=== PATIENT | female | born 1935 | race Caucasian/White ===

== ENCOUNTER 2023-08-31 17:58 | Emergency (ER) | payer MEDICARE, OTHER, SELFPAY ==
[2023-08-31 17:59] VITALS: BP 178/75; PULSE 87; RESP 16; TEMP 36.7; O2SAT 100; BMI 26.0
[2023-08-31] MEDS: 0.9% Normal Saline (1000mL) 1,000 ML 999 ML IV (18:49)
--- NOTE | 2023-08-31 18:49 | EX.ED.DYSGE1 ---
HPI <SHARON Alves - Last Filed: 08/31/23 20:41> History of Present Illness Chief Complaint: Complaint Narrative Narrative: Patient presenting today due to decreased urination that started today. She reports that she has tried multiple times to urinate but is unable to. She reports that over the past 6 days she has been sick with flulike symptoms, her daughter and grandchildren have been sick with similar symptoms and were here visiting her for [place]. She reports that 6 days ago she started having diarrhea, this lasted for 2 days. She reports that now she has a productive cough that is getting better. She reports that she drank a cup of coffee, cider, and pop today with a little bit of water in between. She denies any fevers, chills, chest pain, shortness of breath, abdominal pain, nausea, or vomiting. PFSH <SHARON Alves - Last Filed: 08/31/23 20:41> PFSH Allergy/AdvReac Type Severity Reaction Status Date / Time amoxicillin Allergy Intermediate Rash Verified 08/31/23 19:27 ciprofloxacin [From Cipro] Allergy Intermediate Rash Verified 08/31/23 18:02 clavulanic acid Allergy Intermediate Rash Verified 08/31/23 19:27 codeine AdvReac Intermediate Vomiting Verified 08/31/23 18:02 meperidine [From Demerol] AdvReac Intermediate Vomiting Verified 08/31/23 18:02 morphine AdvReac Intermediate Vomiting Verified 08/31/23 18:02 Social History Smoking Status: Never smoker ROS <SHARON Alves - Last Filed: 08/31/23 20:41> ROS ED Constitutional Constitutional ED: Denies chills or fever(s) Cardiovascular Cardiovascular: Denies chest pain Respiratory/Chest Respiratory/Chest: Reports cough; Denies dyspnea or dyspnea on exertion Gastrointestinal Gastrointestinal: Denies abdominal pain, nausea or vomiting Genitourinary Genitourinary ED: Denies dysuria, hematuria or urinary urgency Musculoskeletal Musculoskeletal: Denies arthralgias or myalgias Integumentary Reports other Details: Patient reports a slight rash to her chest due to 2 days of Augmentin that she recently took but discontinued. Neurologic Neurologic: Denies weakness EXAM <SHARON Alves - Last Filed: 08/31/23 20:41> Physical Exam Const Vital Signs: 08/31/23 17:59 08/31/23 20:38 Temperature 98.1 F Temperature Source Temporal Pulse Rate 87 77 Respiratory Rate 16 Blood Pressure 178/75 H Blood Pressure Mean 109 Pulse Ox 100 99 Oxygen Delivery Method Room Air Room Air Positive well nourished, well developed and no apparent distress General Appearance ED: well developed HEENT Reports normocephalic and head/scalp atraumatic Mouth ED: Yes moist mucous membranes normal Eyes PERRL and EOMs intact bilaterally Neck full ROM and supple Chest Wall inspection of chest normal Resp normal respiratory effort and clear to auscultation bilaterally Cardio regular rate and regular rhythm GI soft to palpation, non-tender, non-distended and no masses Back/Spine normal ROM and normal to inspection Extremity normal to inspection and full ROM Neuro oriented x3, CN's II-XII intact bilaterally, moves all extremities, no focal motor deficits and no sensory deficits noted Sensorium / Orientation: awake and alert Psych mental status grossly normal and thought process normal Skin no rashes or lesions noted and no wounds <Dr. Hiro Ryder, DO - Last Filed: 08/31/23 23:23> Physical Exam Const Vital Signs: 08/31/23 17:59 08/31/23 20:38 Temperature 98.1 F Temperature Source Temporal Pulse Rate 87 77 Respiratory Rate 16 Blood Pressure 178/75 H Blood Pressure Mean 109 Pulse Ox 100 99 Oxygen Delivery Method Room Air Room Air MDM <SHARON Alves - Last Filed: 08/31/23 20:41> [facility] Narrative Medical decision making narrative: Patient presenting due to decreased urinary output that started today. She has been sick with flulike symptoms that sound viral in nature over the past 6 days. Her , daughter, and grandchildren have been sick with similar symptoms. At the beginning of her illness she did have 2 days of diarrhea which has resolved. She reports a cough that is getting better. It does not sound like she has had much to drink today, I suspect that patient's decreased urinary output is due to dehydration. Labs will be obtained to rule out GOLDY, electrolyte abnormality, leukocytosis, and UTI. She is hypokalemic at 3.0, she was given potassium replacement here. She was given IV fluids and was able to urinate without difficulty. No UTI. I encouraged her to follow-up with her PCP. She will be discharged home in stable condition and is comfortable with plan. Lab Data Attestation: I reviewed the patient's lab results. Lab results narrative: H&H 11.7 and 34.4, potassium 3.0 Labs: Laboratory Results - last 24 hr 08/31/23 08/31/23 18:23 19:05 WBC 7.4 RBC 3.50 L Hgb 11.7 L Hct 34.4 L MCV 98.3 MCH 33.4 H MCHC 34.0 RDW Std Deviation 44.8 H RDW Coeff of Beau 12.4 Plt Count 282 MPV 8.8 Immature Gran % (Auto) 0.400 Neut % (Auto) 59.3 Lymph % (Auto) 26.7 Izard % (Auto) 8.8 Eos % (Auto) 4.5 Baso % (Auto) 0.3 Absolute Neuts (auto) 4.4 Absolute Lymphs (auto) 1.97 Nucleated RBC % 0 Sodium 140 Potassium 3.0 L Chloride 108 H Carbon Dioxide 30.0 Anion Gap 2 L BUN 13 Creatinine 0.99 Estim Creat Clear Calc 35.22 Est GFR (MDRD) Af Amer 68 Est GFR (MDRD) Non-Af 56 L BUN/Creatinine Ratio 13.1 Glucose 117 H Calcium 9.1 Urine Color Yellow Urine Clarity Clear Urine pH 6.0 Ur Specific [place] 1.010 Urine Protein Negative Urine Glucose (UA) Normal Urine Ketones Negative Urine Occult Blood Negative Urine Nitrite Negative Urine Bilirubin Negative Urine Urobilinogen Normal Ur Leukocyte Esterase Negative Urine RBC 0 SEEN Urine WBC 0 SEEN Ur Squamous Epith Cells 0-5 SEEN Urine Bacteria 0 SEEN Urine Mucus 0 SEEN <Dr. Hiro Ryder, DO - Last Filed: 08/31/23 23:23> [facility] MDM Narrative Medical decision making narrative: Patient presenting due to decreased urinary output that started today. She has been sick with flulike symptoms that sound viral in nature over the past 6 days. Her , daughter, and grandchildren have been sick with similar symptoms. At the beginning of her illness she did have 2 days of diarrhea which has resolved. She reports a cough that is getting better. It does not sound like she has had much to drink today, I suspect that patient's decreased urinary output is due to dehydration. Labs will be obtained to rule out GOLDY, electrolyte abnormality, leukocytosis, and UTI. She is hypokalemic at 3.0, she was given potassium replacement here. She was given IV fluids and was able to urinate without difficulty. No UTI. I encouraged her to follow-up with her PCP. She will be discharged home in stable condition and is comfortable with plan. Attending note: Patient seen and evaluated with dinkey engine firer. I perform my own [id number] evaluation. I agree with the plan of work-up. Please consider decreased urine output.'s been sick had vomiting is resolved now diarrhea. No recent antibiotics. Sick contact with family members. She is tolerating oral fluids. Examination after workup and fluids given nontoxic feeling much better. Clinically nontoxic no focal deficits. Labs slight hypokalemia consistent with her diarrhea. Creatinine 0.99 white count of 4 hemoglobin 9.7. Urine was negative for fraction. She is ambulated with no difficulties. She will continue oral fluids for hydration at home. Outpatient follow-up with return precautions. All questions were answered. Lab Data Labs: Laboratory Results - last 24 hr 08/31/23 08/31/23 18:23 19:05 WBC 7.4 RBC 3.50 L Hgb 11.7 L Hct 34.4 L MCV 98.3 MCH 33.4 H MCHC 34.0 RDW Std Deviation 44.8 H RDW Coeff of Beau 12.4 Plt Count 282 MPV 8.8 Immature Gran % (Auto) 0.400 Neut % (Auto) 59.3 Lymph % (Auto) 26.7 Izard % (Auto) 8.8 Eos % (Auto) 4.5 Baso % (Auto) 0.3 Absolute Neuts (auto) 4.4 Absolute Lymphs (auto) 1.97 Nucleated RBC % 0 Sodium 140 Potassium 3.0 L Chloride 108 H Carbon Dioxide 30.0 Anion Gap 2 L BUN 13 Creatinine 0.99 Estim Creat Clear Calc 35.22 Est GFR (MDRD) Af Amer 68 Est GFR (MDRD) Non-Af 56 L BUN/Creatinine Ratio 13.1 Glucose 117 H Calcium 9.1 Urine Color Yellow Urine Clarity Clear Urine pH 6.0 Ur Specific [place] 1.010 Urine Protein Negative Urine Glucose (UA) Normal Urine Ketones Negative Urine Occult Blood Negative Urine Nitrite Negative Urine Bilirubin Negative Urine Urobilinogen Normal Ur Leukocyte Esterase Negative Urine RBC 0 SEEN Urine WBC 0 SEEN Ur Squamous Epith Cells 0-5 SEEN Urine Bacteria 0 SEEN Urine Mucus 0 SEEN Discharge Plan Triage Chief Complaint: Complaint ED Midlevel Provider: Charlene Gudino ED Provider: Hiro Ryder Dx/Rx/DC Orders Clinical Impression: Viral illness, Dehydration, Acute hypokalemia Instructions: ED Dehydration (Adult), ED Viral Syndrome (Adult) Primary Care Provider: Care Physician,No Primary Referrals: NOT,DEFINED [Non-Staff] - Activity Restrictions/Additional Instructions: Follow-up with your PCP in 3 to 5 days if no improvement of your symptoms. Return for any worsening of your symptoms. Stay well-hydrated. Disposition Disposition: Home, Self Care Discharge Date/Time: 08/31/23 20:38
--- OUTSIDE RECORDS SUMMARY | 2023-08-31 18:54 | XMS RPT_ITS | CCD ---
Author Name Unknown Address [address] [place] [address] Organization [facility] Care Team Providers Care Handle Rounder Operator Name Role Phone Lewis, Rufus Attending Unavailable Mary Dyer Referring Unavailable Mary Dyer Primary Care Unavailable Luz Maria Pemberton Attending Unavailable UNKNOWN, PROVIDER Referring Unavailable Gunning, Rufus Primary Care Unavailable PROVIDER, UNKNOWN Attending Unavailable UNKNOWN, PROVIDER Referring Unavailable Gunning, Rufus Primary Care Unavailable Gunning, Rufus Attending Unavailable UNKNOWN, PROVIDER Referring Unavailable Gunning, Rufus Primary Care Unavailable Gunning, Rufus Primary Care Provider Gunbetty, Rufus Primary Care Provider Lewis MYERS, Rufus Primary Care Provider Lewis MYERS, Rufus Primary Care Provider Lewis MYERS, Rufus Primary Care Provider AJIT REAVES MD [facility] Attending Rebeca macy REAVES MD., DR. AJIT Garcia Primary Care Unavail able Lewis MYERS, Rufus Primary Care Provider Lewis MYERS, Rufus Primary Care Provider Ajit Reaves Primary Care Provider Unavailabl e Lewis MYERS, Rufus Primary Care Provider NILAY, LUZ MARIA Attending Unavailable GUNNING, RUFUS Primary Care Unavailable NILAY, LUZ MARIA Attending Unavailable GUNNING, RUFUS Primary Care Unavailable NILAY, LUZ MARIA Attending Unavailable GUNNING, RUFUS Primary Care Unavailable ARCADIO MARI Attending Unavailable GUNNING, RUFUS Primary Care Unavailable ARCADIO MARI Attending Unavailable AJIT REAVES Primary Care Unavailable NILAY, LUZ MARIA Attending Unavailable GUNNING, RUFUS Primary Care Unavailable LUZ MARIA PEMBERTON Attending Unavailable RUFUS EVANS Primary Care Unavailable AJIT REAVES Attending Unavailable AJIT RAEVES Referring Unavailable RUFUS EVANS Primary Care Unavailable JELLY, AJIT Attending Unavailable HAFSARIDARSHAN, AJIT Referring Unavailable HAFSARIDARSHAN, AJIT Primary Care Unavailable HAFSARIDARSHAN, AJIT Attending Unavailable HAFSARIDARSHAN, AJIT Referring Unavailable HAFSARIDARSHAN, AJIT Primary Care Unavailable Allergies Allergy Classification Reported Allergen(s) Allergy Type Date of Onset Reaction(s) Facility (20 sources) amLODIPine Drug Allergy 6 [facility] Work Phone: (20 sources) Ciprofloxacin Drug Allergy 6 Rash [facility] Work Phone: (20 sources) Codeine Drug Allergy 6 [facility] Work Phone: (9 sources) hydroCHLOROthiazide Drug Allergy 6 [facility] Work Phone: (20 sources) Meperidine Drug Allergy 6 [facility] Work Phone: (20 sources) Morphine Drug Allergy 6 [facility] Work Phone: (20 sources) nebivolol Drug Allergy 6 Shortness Of Breath [facility] Work Phone: (19 sources) Docusate Drug Allergy 9 Shortness of breath [facility] (19 sources) hydroCHLOROthiazide Drug Allergy 6 [facility] (19 sources) oxybutynin Drug Allergy 8 [facility] Medications Current Medications Medication Drug Class(es) Dates Sig (Normalized) Sig (Original) Ascorbic Acid (19 sources) Vitamin C take 1 tablet by della th once daily Ascorbic Acid (PATY-C PO) Take 1 tablet by mouth daily. 0 Active Completed/Discontinued Medications Medication Drug Class(es) Dates Sig (Normalized) Sig (Original) perflutren lipid microspheres (DEFINITY) injection 1.65 mg (1 source) Start: 01-15-2020 End: 01-15-2020 perflutren lipid microspheres (DEFINITY) injection 1.65 mg Problems Active Problems Problem Classification Problem Date Documented Date Episodic/Chronic Allergic reactions (6 sources) Allergy status to narcotic agent status; Translations: [Allergy status to other antibiotic agents status] Onset: 10-26-2018 Episodic Contraceptive and procreative management (2 sources) Tubal ligation status; Translations: [Tubal ligation status] Onset: 10-26-2018 Episodic Disorders of lipid metabolism (20 sources) Hyperlipidemia, unspecified; Translations: [Hyperlipidemia] Onset: 06-02-2016 06-02-2016 Chronic Esophageal disorders (2 sources) Gastro-esophageal reflux disease without esophagitis; Translations: [Gastro-esophageal reflux disease without esophagitis] Onset: 10-26-2018 Chronic Essential hypertension (20 sources) Essential (primary) hypertension; Translations: [Essential hypertension] Onset: 04-15-2016 Resolved: 07-02-2020 04-15-2016 Chronic Malaise and fatigue (1 source) Fatigue; Translations: [Other fatigue] Episodic Nonmalignant breast conditions (5 sources) Pain of breast; Translations: [Mastodynia] Onset: 05-12-2023 05-12-2023 Episodic Nutritional deficiencies (1 source) Vitamin D deficiency; Translations: [Vitamin D deficiency, unspecified] Chronic Other aftercare (2 sources) [facility] (current) use of aspirin; 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] Onset: 10-26-2018 Episodic Other connective tissue disease (2 sources) Personal history of other diseases of the musculoskeletal system and connective tissue; Translations: [Personal history of diseases of the ms sys and conn tiss] Onset: 10-26-2018 Episodic Other nervous system disorders (2 sources) Carpal tunnel syndrome, left upper limb; Translations: [Carpal tunnel syndrome, left upper limb] Onset: 11-21-2018 Chronic Residual codes; unclassified (2 sources) Obstructive sleep apnea (adult) (pediatric); Translations: [Obstructive sleep apnea (adult) (pediatric)] Onset: 10-26-2018 Chronic Residual codes; unclassified (20 sources) Obstructive sleep apnea syndrome; Translations: [Obstructive sleep apnea (adult) (pediatric)] Onset: 06-10-2021 06-10-2021 Chronic Residual codes; unclassified (2 sources) Other specified postprocedural states; Translations: [Other specified postprocedural states] Onset: 10-26-2018 Urinary tract infections (1 source) Urinary tract infectious disease; Translations: [Urinary tract infection, site not specified] Episodic Past or Other Problems Problem Classification Problem Date Documented Da te Episodic/Chronic Other lower respiratory disease (20 sources) Dyspnea on exertion; Translations: [Dyspnea, unspecified] Onset: 01-02-2020 01-02-2020 Episodic Other lower respiratory disease (2 sources) Dyspnea; Translations: [Other forms of dyspnea] Onset: 12-28-2022 12-28-2022 Episodic Other lower respiratory disease (1 source) Other forms of dyspnea; Translations: [Other forms of dyspnea] Onset: 06-15-2022 Episodic Other screening for suspected conditions (not mental disorders or infectious disease) (7 sources) Encounter for screening mammogram for malignant neoplasm of breast; Translations: [Patient encounter status] Onset: 03-23-2018 05-10-2023 Episodic Results Test Name Value Interpretation Reference Range Facil ity Vital Signs Date Time Vital Sign Value Performing Clinician Faci lity 08-09-2023 10:17-0500 Body height 162.6 cm Arcadio Mari MD Work Phone: [facility] 08-09-2023 10:17-0500 Body mass index (BMI) [Ratio] 25.47 kg/m2 Arcadio Mari MD Work Phone: [facility] 08-09-2023 10:17-0500 Body weight 67.31 kg Arcadio Mari MD Work Phone: [facility] 08-09-2023 10:17-0500 Diastolic blood pressure 80 mm[Hg] Arcadio Mari MD Work Phone: [facility] 08-09-2023 10:17-0500 Heart rate 74 /min Arcadio Mari MD Work Phone: [facility] 08-09-2023 10:17-0500 Respiratory rate 16 /min Arcadio Mari MD Work Phone: [facility] 08-09-2023 10:17-0500 SaO2% (BldA) [Mass fraction] 98 % Arcadio Mari MD Work Phone: [facility] 08-09-2023 10:17-0500 Systolic blood pressure 126 mm[Hg] Arcadio Mari MD Work Phone: [facility] 05-10-2023 11:23-0400 Body height 162.6 cm Ajit Reaves MD Work Phone: [facility] 05-10-2023 11:23-0400 Body mass index (BMI) [Ratio] 25.23 kg/m2 Ajit Reaves MD Work Phone: [facility] 05-10-2023 11:23-0400 Body weight 66.68 kg Ajit Reaves MD Work Phone: [facility] 02-01-2023 10:36-0400 Body height 162.6 cm Luz Maria Nilay PA-C Work Phone: [facility] 02-01-2023 10:36-0400 Body mass index (BMI) [Ratio] 25.23 kg/m2 Luz Maria Nilay PA-C Work Phone: [facility] 02-01-2023 10:36-0400 Body weight 66.68 kg Luz Maria Nilay PA-C Work Phone: [facility] 02-01-2023 10:36-0400 Diastolic blood pressure 62 mm[Hg] Luz Maria Nilay PA-C Work Phone: [facility] 02-01-2023 10:36-0400 Heart rate 66 /min Luz Maria Nilay PA-C Work Phone: [facility] 02-01-2023 10:36-0400 Respiratory rate 15 /min Luz Maria Nilay PA-C Work Phone: [facility] 02-01-2023 10:36-0400 Systolic blood pressure 134 mm[Hg] Luz Maria Nilay PA -C Work Phone: [facility] Encounters Encounter Date Encounter Type Care Provider Facility Start: 08-09-2023 End: 08-09-2023 ambulatory ARCADIO MARI [facility] Start: 08-09-2023 End: 08-09-2023 Office outpatient visit 25 minutes Arcadio Mari MD Work Phone: [facility] Procedures Date Procedure Procedure Detail Performing Clinician Start: 08-09-2023 Ecg routine ecg w/le ast 12 lds w/i&r Arcadio Mari MD Work Phone: Start: 05-12-2023 Us breast uni real t justin with image limited Ajit Jelly Start: 05-12-2023 Diagnostic mammograp hy computer-aided detcj bi Ajit Reaves Start: 01-29-2023 Basic metabolic pane l calcium total Luz Maria Nilay PA-C Work Phone: Start: 01-04-2023 Basic metabolic pane l calcium total Luz Maria Nilay PA-C Work Phone: Start: 12-28-2022 Basic metabolic pane l calcium total Luz Maria Nilay PA-C Work Phone: Start: 05-07-2022 Screening digital br east tomosynthesis bi Ajit Reaves MD Work Phone: Start: 03-31-2022 Us retroperitoneal r eal time w/image limited Carleen Sarabia MD Work Phone: Start: 04-19-2021 Radiologic exam ches t 2 views Arminda Scherer MD Work Phone: Start: 02-15-2020 Comprehensive metabo lic panel Luz Maria Nilay Work Phone: Start: 01-15-2020 ECHOCARDIOGRAM EXERC ISE STRESS TEST Luz Maria Nilay Work Phone: Start: 01-04-2020 Radiologic exam ches t 2 views Luz Maria Nilay Work Phone: Start: 01-04-2020 Natriuretic peptide [facility] Nilay Work Phone: Start: 09-01-2019 Comprehensive metabo lic panel Darshan Floyd MD Work Phone: Start: 09-01-2019 Lipid panel Darshan Floyd MD Work Phone: Start: 09-01-2019 Lipid 1996 panel - S jens or Plasma [facility] Drawstation Plan of Treatment Date Care Activity Detail Author Start: 10-17-2027 DTaP/Tdap/Td vaccine (2 - Td or Tdap) DTaP/Tdap/Td vaccine (2 - Td or Tdap) [facility] Start: 10-17-2027 DTaP/Tdap/Td Vaccines (2 - Td or Tdap) DTaP/Tdap/Td Vaccines (2 - Td or Tdap) [facility] Start: 09-01-2024 Lipid panel Lipid Panel [facility] Start: 08-09-2023 End: 08-09-2023 Patient encounter procedure [facility] Start: 05-10-2023 End: 05-10-2023 Patient encounter procedure 05/10/2023 11:15 AM EDT Appointment [facility] [address] [place] [address] [facility] Start: 04-30-2023 COVID-19 Vaccine ( season) COVID-19 Vaccine () [facility] Start: 04-30-2023 Influenza vaccination Influenza Vaccine (#1) [facility] Start: 03-22-2023 End: 05-23-2024 DBT Breast - bilateral screening Bilateral screening mammogram with tomosynthesis Imaging Routine Encounter for screening mammogram for malignant neoplasm of breast Expected: 03/22/2023, Expires: 05/23/2024 [facility] Work Phone: Immunizations Immunization Date Immunization Notes Care Provider Jina stiles 06-25-2022 influenza virus vacc ine, unspecified formulation Luz Maria Pemberton PA-C Work Phone: [facility] Payers Date Payer Category Payer Medicare [id number] 2022 Private Health Insurance [id number] 2014 Medicare MEDICARE MEDICAR E PART A AND B xxxxxxxxxxx 2014-Present [phone] [place] [address] xxxxxxxxxxx [id number] 2014 Private Health Insurance HUMANA HUMANA MEDICARE SUPP xxxxxxxxx 2014-Present [address] [address] [place] [address] xxxxxxxxx [id number] 2010 Private Health Insurance 2010 Private Health Insurance [id number] 2001 Medicare 2001 Medicare [id number] 1936 Unknown [id number] Unknown [id number] 1936 Unknown [id number] Unknown [id number] 1936 Unknown [id number] Social History Date Type Detail Facility Start: 06-02-2016 End: 01-02-2020 Tobacco smoking status WAIS Never smoker [employer] Phone: Start: 01-02-2020 End: 06-10-2021 Alcohol intake Current drinker of alcohol (finding) [facility] Phone: Start: 04-14-2016 Alcohol Comment ocasional glass of w ine [facility] Phone: Start: 1935 Sex Assigned At Not on file [facility] Work Phone: Start: 06-02-2016 End: 01-02-2020 Tobacco use and exposure Never used [facility] [place] Start: 12-28-2022 End: 08-09-2023 Alcohol intake Ex-drinker (finding) [facility] Start: 12-18-2022 End: 02-01-2023 Exposure to SARS-CoV-2 (event) Not sure [facility] Start: 02-01-2023 End: 08-09-2023 History of Social function [facility] Start: 02-01-2023 End: 08-09-2023 Tobacco use panel [facility] Clinical Notes 04-19-2021 to 08-09-2023 Arcadio Mari MD - 08/09/2023 10:15 AM ESTCare Coordination - Funmi Glover, [facility] - 05/10/2023 11:15 AM [facility] [place] Funmi Glover, [facility] - 05/10/2023 11:15 AM EDT Note Date & Type Note Facility 08-09-2023 History of Present illness Narrative [facility] [address] [place] [address] [facility] [address] Dept: [phone] Dept Visit type: Established : 1935 Chief Complaint: Chief Complaint Patient presents with 6 Month Follow-up Hypertension History of Present Illness: Luz Maria Burnham is a 87 y.o. female who is here in follow-up concerning her history of hypertensive heart disease and dyspnea. Overall she has been doing well. She will have some shortness of breath and fatigue after being active all day. She does not have symptoms of angina or heart failure. She did not tolerate a beta-antonia due to fatigue. She is doing better on her current antihypertensive regimen. Past Medical History: Past Medical History: Diagnosis Date Dyspnea on exertion 01/02/2020 GERD (gastroesophageal reflux disease) Hyperlipidemia Hypertension Obstructive sleep apnea (adult) (pediatric) Vertigo Past Surgical History Past Surgical History: Procedure Laterality Date ADENOIDECTOMY (HISTORICAL) DILATION AND CURETTAGE OF UTERUS ROTATOR CUFF REPAIR Bilateral SPINE SURGERY Shranoma nerve TONSILLECTOMY (HISTORICAL) TUBAL LIGATION Family History Family History Problem Relation Name Age of Onset Bladder Cancer Mother 40 Heart failure Father Heart disease Brother Hypertension Brother Colon cancer Paternal Grandfather 80 Social History Social History Tobacco Use Smoking status: Never Smokeless tobacco: Never Substance Use Topics Alcohol use: Not Currently Drug use: Yes Comment: occ glass of wine Allergies: Allergies Allergen Reactions Docusate Shortness of breath Nebivolol Hcl Shortness of breath Excessive sweating Excessive sweating Codeine Other reaction(s): Other: See Comments Intolerance unknown Vomiting, lightheadedness, sweating Meperidine Other reaction(s): Intolerance, Vomiting Intolerance unknown Vomiting, lightheaded, sweating Morphine Other reaction(s): Other: See Comments Intolerance unknown Vomiting, lightheaded, sweating Hydrochlorothiazide Fatigue Amlodipine Other reaction(s): Other: See Comments Fatigue fatique Ciprofloxacin Rash Oxybutynin Other reaction(s): Mental Status Change foggy Medications: Current Outpatient Medications: Ascorbic Acid (PATY-C PO), Take 1 tablet by mouth daily., Disp: , Rfl: CRANBERRY PO, Take 1 capsule by mouth daily., Disp: , Rfl: hydroCHLOROthiazide (HYDRODiuril) 25 MG tablet, take 1/2 tablet by mouth once daily, Disp: 15 tablet, Rfl: 4 losartan (Cozaar) 50 MG tablet, Take 1 tablet by mouth in the morning and 1 tablet in the evening., Disp: , Rfl: omeprazole (PriLOSEC) [address] capsule, Take 20 mg by mouth Daily as needed. Do not crush or chew., Disp: , Rfl: Review of Systems: Review of Systems Constitutional: Positive for fatigue. Negative for activity change, chills, diaphoresis and fever. HENT: Negative for nosebleeds and trouble swallowing. Eyes: Negative for discharge and visual disturbance. Respiratory: Positive for shortness of breath (with exc/stairs). Negative for apnea, cough, chest tightness and wheezing. Cardiovascular: Negative for chest pain, palpitations and leg swelling. Gastrointestinal: Negative for abdominal distention, abdominal pain, blood in stool, diarrhea, nausea and vomiting. Endocrine: Negative for cold intolerance and heat intolerance. Genitourinary: Negative for hematuria. Musculoskeletal: Negative for gait problem and myalgias. Skin: Negative for color change and rash. Neurological: Negative for dizziness, seizures, syncope, facial asymmetry, speech difficulty, weakness, light-headedness, numbness and headaches. Hematological: Does not bruise/bleed easily. Psychiatric/Behavioral: Negative for dysphoric mood. Physical Examination: Vitals: Vitals: 08/09/23 1017 BP: 126/80 BP Location: Left arm Patient Position: Sitting BP Cuff Size: Adult Pulse: 74 Resp: 16 SpO2: 98% Weight: 148 lb 6.4 oz (67.3 kg) Height: 5' 4 (1.626 m) Body mass index is 25.47 kg/m . Physical Exam Constitutional: Appearance: Normal appearance. HENT: Head: Normocephalic and atraumatic. Nose: Nose normal. Eyes: General: No scleral icterus. Extraocular Movements: Extraocular movements intact. Pupils: Pupils are equal, round, and reactive to light. Neck: Thyroid: No thyromegaly. Vascular: No carotid bruit or JVD. Cardiovascular: Rate and Rhythm: Normal rate and regular rhythm. Pulses: Normal pulses. Heart sounds: No murmur heard. No gallop. Pulmonary: Effort: Pulmonary effort is normal. Breath sounds: No wheezing, rhonchi or rales. Chest: Chest wall: No tenderness. Abdominal: General: Abdomen is flat. There is no distension. Palpations: Abdomen is soft. There is no hepatomegaly, splenomegaly or mass. Musculoskeletal: General: No swelling or tenderness. Normal range of motion. Cervical back: No tenderness. Skin: General: Skin is warm. Neurological: General: No focal deficit present. Mental Status: She is alert and oriented to person, place, and time. Cranial Nerves: Cranial nerves 2-12 are intact. No cranial nerve deficit. Psychiatric: Attention and Perception: Attention normal. Mood and Affect: Mood normal. Speech: Speech normal. Behavior: Behavior normal. Laboratory Tests: Lab Results Component Value Date WBC 7.5 01/04/2023 HGB 12.6 01/04/2023 HCT 36.6 01/04/2023 MCV 95.3 01/04/2023 PLT 209 01/04/2023 Lab Results Component Value Date GLUCOSE 95 01/29/2023 CALCIUM 9.0 01/29/2023 NA 137 01/29/2023 K 3.6 01/29/2023 CO2 30 01/29/2023 CL 103 01/29/2023 BUN 14 01/29/2023 CREATININE 0.70 01/29/2023 @LASTCMP@ Lab Results Component Value Date CHOL 246 (A) 09/01/2019 Lab Results Component Value Date TRIG 107 09/01/2019 Lab Results Component Value Date HDL 80 (H) 09/01/2019 No results found for: LDLCALC NT PRO BNP Date Value Ref Range Status 01/04/2020 91 0 - 450 pg/mL Final Assessment and Plan: 1. Primary hypertension 1. Hypertensive heart disease: She is currently doing well on her current medicines. Her blood pressure is well-controlled. I will continue this as is. 2. Fatigue: She had fatigue with beta-blockers and other antihypertensives. She is doing better on this regimen. We will continue this. documented in this encounter [facility] 05-10-2023 Miscellaneous Notes Patient came in for bilateral screening mammogram today, after asking if she had any issues the patient stated she had a lump with pain in left lateral breast for the last week. I asked if she had seen her doctor concerning this issue and she stated she had not. I then explained to the patient that we would need to call her doctors office and obtain an order for a diagnostic mammogram and ultrasound for her lump and pain. Patient was frustrated initially. I continued to explain the importance of a diagnostic mammogram vs a screening mammogram for her. After talking with the patient she understood we would reach out to her doctor and get her on the schedule as soon as possible. Patient was agreeable to this. documented in this encounter [facility] 05-10-2023 Note Formatting of this n ote might be different from the original. Patient came in for bilateral screening mammogram today, after asking if she had any issues the patient stated she had a lump with pain in left lateral breast for the last week. I asked if she had seen her doctor concerning this issue and she stated she had not. I then explained to the patient that we would need to call her doctors office and obtain an order for a diagnostic mammogram and ultrasound for her lump and pain. Patient was frustrated initially. I continued to explain the importance of a diagnostic mammogram vs a screening mammogram for her. After talking with the patient she understood we would reach out to her doctor and get her on the schedule as soon as possible. Patient was agreeable to this. [facility] 05-10-2023 Note Formatting of this n ote might be different from the original. Patient came in for bilateral screening mammogram today, after asking if she had any issues the patient stated she had a lump with pain in left lateral breast for the last week. I asked if she had seen her doctor concerning this issue and she stated she had not. I then explained to the patient that we would need to call her doctors office and obtain an order for a diagnostic mammogram and ultrasound for her lump and pain. Patient was frustrated initially. I continued to explain the importance of a diagnostic mammogram vs a screening mammogram for her. After talking with the patient she understood we would reach out to her doctor and get her on the schedule as soon as possible. Patient was agreeable to this. [facility] 04-05-2023 Telephone encounter Note COLBY: 02/01/23, Last BMP: 01/29/23 [facility] 04-05-2023 Miscellaneous Notes COLBY: 02/01/23, Last BMP: 01/29/23 documented in this encounter [facility] 02-01-2023 History of Present illness Narrative [facility] Note DATE of SERVICE:02/01/23 TIME of SERVICE: 10:58 AM Chief Complaint: Chief Complaint Patient presents with Follow-up History of PresentIllness: Luz Maria Burnham is a 87 y.o. female known to Dr. Mari with a history of hypertensive heart disease, and hyperlipidemia. Over the last couple of months medications have been changed for better blood pressure management as well as significant fatigue. Metoprolol was changed to bisoprolol which did not help alleviate the symptoms of fatigue. She stopped the bisoprolol on her own accord. She was placed on hydralazine and she states she did not feel well on this. She was last seen May 1 and at that time she was willing to try hydrochlorothiazide that had been previously listed as an intolerance that she could not remember. She comes in today for follow-up. She is happy to say she is feeling great. Her blood pressures have been better controlled, and her activity tolerance is significantly improved. Past Medical History: Past Medical History: Diagnosis Date Dyspnea on exertion 01/02/2020 GERD (gastroesophageal reflux disease) Hyperlipidemia Hypertension Obstructive sleep apnea (adult) (pediatric) Vertigo Past Surgical History Past Surgical History: Procedure Laterality Date ADENOIDECTOMY (HISTORICAL) DILATION AND CURETTAGE OF UTERUS ROTATOR CUFF REPAIR Bilateral SPINE SURGERY Shranoma nerve TONSILLECTOMY (HISTORICAL) TUBAL LIGATION Family History Family History Problem Relation Name Age of Onset Heart failure Father Heart disease Brother Hypertension Brother Social History Social History Tobacco Use Smoking status: Never Smokeless tobacco: Never Substance Use Topics Alcohol use: Not Currently Drug use: No Allergies: Allergies Allergen Reactions Docusate Shortness of breath Nebivolol Hcl Shortness of breath Excessive sweating Excessive sweating Codeine Other reaction(s): Other: See Comments Intolerance unknown Vomiting, lightheadedness, sweating Meperidine Other reaction(s): Intolerance, Vomiting Intolerance unknown Vomiting, lightheaded, sweating Morphine Other reaction(s): Other: See Comments Intolerance unknown Vomiting, lightheaded, sweating Hydrochlorothiazide Fatigue Amlodipine Other reaction(s): Other: See Comments Fatigue fatique Ciprofloxacin Rash Oxybutynin Other reaction(s): Mental Status Change foggy Medications: Current Outpatient Medications: Ascorbic Acid (PATY-C PO), Take by mouth., Disp: , Rfl: CRANBERRY PO, Take by mouth., Disp: , Rfl: hydroCHLOROthiazide (HYDRODiuril) 25 MG tablet, Take 0.5 tablets (12.5 mg) by mouth daily., Disp: 15 tablet, Rfl: 3 losartan (Cozaar) 50 MG tablet, Take 1 tablet by mouth in the morning and 1 tablet in the evening., Disp: , Rfl: omeprazole (PriLOSEC) [address] capsule, Take 20 mg by mouth Daily as needed. Do not crush or chew., Disp: , Rfl: Review of Systems: Review of Systems Constitutional: Negative for chills, diaphoresis and fever. HENT: Negative for congestion. Eyes: Negative for visual disturbance. Respiratory: Negative for chest tightness and shortness of breath. Cardiovascular: Negative for chest pain and palpitations. Gastrointestinal: Negative for abdominal pain, constipation, diarrhea and nausea. Endocrine: Negative for cold intolerance and heat intolerance. Genitourinary: Negative for dysuria and hematuria. Musculoskeletal: Negative for arthralgias. Skin: Negative for rash. Neurological: Negative for dizziness and syncope. Physical Examination: Vitals: Vitals: 02/01/23 1036 BP: 134/62 BP Location: Right arm Patient Position: Sitting BP Cuff Size: Adult Pulse: 66 Resp: 15 Weight: 147 lb (66.7 kg) Height: 5' 4 (1.626 m) Body mass index is 25.23 kg/m . Physical Exam Constitutional: General: She is not in acute distress. Appearance: She is not diaphoretic. HENT: Head: Normocephalic. Eyes: General: Right eye: No discharge. Left eye: No discharge. Conjunctiva/sclera: Conjunctivae normal. Cardiovascular: Rate and Rhythm: Normal rate and regular rhythm. Pulmonary: Breath sounds: No wheezing or rales. Abdominal: General: Bowel sounds are normal. Palpations: Abdomen is soft. Musculoskeletal: Right lower leg: No edema. Left lower leg: No edema. Skin: General: Skin is warm and dry. Findings: No erythema or rash. Neurological: Mental Status: She is oriented to person, place, and time. Psychiatric: Mood and Affect: Mood normal. Laboratory Tests: Lab Results Component Value Date WBC 7.5 01/04/2023 HGB 12.6 01/04/2023 HCT 36.6 01/04/2023 MCV 95.3 01/04/2023 PLT 209 01/04/2023 Lab Results Component Value Date GLUCOSE 95 01/29/2023 CALCIUM 9.0 01/29/2023 NA 137 01/29/2023 K 3.6 01/29/2023 CO2 30 01/29/2023 CL 103 01/29/2023 BUN 14 01/29/2023 CREATININE 0.70 01/29/2023 @LASTCMP@ Lab Results Component Value Date CHOL 246 (A) 09/01/2019 Lab Results Component Value Date TRIG 107 09/01/2019 Lab Results Component Value Date HDL 80 (H) 09/01/2019 No results found for: LDLCALC, LDLDIRECT No components found for: LVEF, LVEFMODE Assessment and Plan: Hypertension. Blood pressure is better controlled. She will continue losartan 50 mg twice daily, along with hydrochlorothiazide 12.5 mg daily. She had follow-up labs January 29 noting stable electrolytes and renal function. Fatigue. She is happy to say her fatigue is markedly improved. Her exercise tolerance is back to what she feels is normal for her. She remains very active. She can be seen again in 6 months, sooner if problems arise. documented in this encounter [facility] 01-05-2023 Telephone encounter Note Noted [facility] 01-05-2023 Miscellaneous Notes Noted Spoke to pt and gave lab results. She states she is leaving for [place] on Wednesday and won't get back to repeat lab work until 01/25. She will get BMP done at that time. She states her blood pressures have improved ranging from 124-132/65-70 HR 68-76. Called and LMOM for pt to call back to discuss lab results per Luz Maria. Carleen, can you let her know that labs are ok except Na is dropping. Lets have her repeat BMP in 2 wks. Order placed. thanks documented in this encounter [facility] 01-05-2023 Telephone encounter Note Spoke to pt and gave lab results. She states she is leaving for [place] on Wednesday and won't get back to repeat lab work until 01/25. She will get BMP done at that time. She states her blood pressures have improved ranging from 124-132/65-70 HR 68-76. [facility] 01-04-2023 Telephone encounter Note Called and LMOM for pt to call back to discuss lab results per Luz Maria. [facility] 01-04-2023 Miscellaneous Notes Called and LMOM for pt to call back to discuss lab results per Luz Maria. Carleen, can you let her know that labs are ok except Na is dropping. Lets have her repeat BMP in 2 wks. Order placed. thanks documented in this encounter [facility] 01-04-2023 Telephone encounter Note Carleen, can you let her know that labs are ok except Na is dropping. Lets have her repeat BMP in 2 wks. Order placed. thanks [facility] 12-28-2022 Miscellaneous Notes Can you please let pt know her labs are stable. Remind her to repeat in one wk after initiation of hydrochlorothiazide [place] documented in this encounter [facility] 12-28-2022 Progress note Formatting of t his note might be different from the original. Can you please let pt know her labs are stable. Remind her to repeat in one wk after initiation of hydrochlorothiazide [place] [facility] 07-14-2021 Note HNO ID: [id number] Author: Olga Avila APRN.[employer] Service: ? Author Type: Nurse Practitioner Type: Progress Notes Filed: 07/14/2021 2:16 PM Note Text: This note was created using [employer]. Subjective Luz Maria Burnham is a 85 year old female. HPI by patient: Luz Maria Burnham is a 85 year old female presenting to the office with the complaint of right wrist pain. Started Wednesday. Woke up with this. Associated symptoms include swelling, redness, and warmth to the site. Denies injury, fall, open areas, history of diabetes, previous skin infection, and history of gout. Doesn't feel she eats a lot of red meat. No alcohol use. OTC Aleve with some temporary relief. No antibiotic use in the last 30 days. Is leaving for [place] in 2 days, her daughter is a physician down there. ALLERGIES Nebivolol Hcl Shortness of Breath Comment:Excessive sweating Codeine Other: See Comments Comment:Vomiting, lightheadedness, sweating Colace (Docusate So* Shortness of Breath Demerol (Meperidine* Intolerance, Vomiting Comment:Vomiting, lightheaded, sweating Morphine Other: See Comments Comment:Vomiting, lightheaded, sweating Amlodipine Other: See Comments Comment:fatique Ciprofloxacin Rash Oxybutynin Mental Status Change Comment: foggy Family History Reviewed Including Cardiac Diseases, Psychiatric Diseases, AND Substance Abuse Problem: Cancer Relation: Mother Age of Onset: (Not Specified) Comment: Bladder Problem: Heart disease Relation: Father Age of Onset: (Not Specified) Problem: Hypertension Relation: Father Age of Onset: (Not Specified) Problem: Stroke Relation: Father Age of Onset: (Not Specified) Social History Tobacco Use Smoking status: Never Smoker Smokeless tobacco: Never Used Vaping Use Vaping Use: Never used Alcohol use: No Drug use: No Active Ambulatory Problems Uterine prolapse Date Noted: 05/26/2018 Midline cystocele Date Noted: 05/26/2018 Stress incontinence, female Date Noted: 05/26/2018 Resolved Ambulatory Problems No Resolved Ambulatory Problems Past Medical History: No date: Hyperlipidemia No date: Hypertension No date: Sleep apnea 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 HENT: Negative. Eyes: Negative. Respiratory: Negative. Cardiovascular: Negative. Endocrine: Negative. Genitourinary: Negative. Musculoskeletal: Positive for joint swelling (right wrist.). Skin: Negative. Neurological: Negative. Hematological: Negative. Objective BP 153/71 Pulse 72 Temp 36.7 ?C (98.1 ?F) (Temporal) Ht 162.6 cm (5' 4 ) Wt 69.4 kg (153 lb) BMI 26.26 kg/m? Physical Exam Constitutional: General: She is not in acute distress. Appearance: She is not ill-appearing, toxic-appearing or diaphoretic. Cardiovascular: Rate and Rhythm: Normal rate and regular rhythm. Pulses: Radial pulses are 2+ on the right side and 2+ on the left side. Pulmonary: Effort: Pulmonary effort is normal. Musculoskeletal: Right wrist: Swelling (with erythema) and tenderness present. Left wrist: No swelling. Psychiatric: Behavior: Behavior is cooperative. Assessment and Plan (L53.9) Erythema (primary encounter diagnosis) Plan: cephALEXin (KEFLEX) 500 mg capsule, WRIST SPLINT - THUMB SPICA (R60.9) Swelling Plan: cephALEXin (KEFLEX) 500 mg capsule, WRIST SPLINT - THUMB SPICA -Redness, warmth, and swelling to the right wrist. No known injury, no history of gout, and history of diabetes. Will treat for possible infection with cephalexin 4 times/day for 5 days. -No splint in the office, please get OTC splint or use printed order at the pharmacy. -Keep splinted if you can. Elevation above the heart. -Ice/heat in rotation in 20 minute intervals. -May use tylenol and Advil OTC for comfort. -If no improvement please be re-seen in 3-5 days with primary care for monitoring and further workup than what can be done in [facility]. -Be seen immediately with worsening symptoms: increased redness/warmth/coolness/paleness. The patient will pursue further outpatient evaluation with the primary care physician or another Urgent Care/Express Care as outlined in the after visit summary. The patient is agreeable to this plan of care and follow-up instructions have been explained in detail. The patient has received these instructions in written format and have expressed an understanding of the after visit summary. Medical Decision Making: Level: 3 - Low I spent a total of 20 minutes on the date of the service which included preparing to see the patient, [id number] patient care, completing clinical documentation, obtaining and/or reviewing separately obtained history, performing a medically appropriate examination, counseling and educating the patient/family/caregiver and ordering medications, tests, or procedures. This patient encounter involved the screening or treatment of nov (more content not included)... [facility] 05-29-2021 Note HNO ID: [id number] Author: Steve Aquino, DO Service: ? Author Type: Physician Type: Progress Notes Filed: 05/29/2021 1:12 PM Note Text: Luz Maria Burnham is a 85 year old female who presents with a chief complaint of Yearly Exam SUBJECTIVE PAST MEDICAL HISTORY Diagnosis Date - Hyperlipidemia - Hypertension - Midline cystocele - Midline cystocele - Sleep apnea CPAP - Uterine prolapse - Vaginal vault prolapse PAST SURGICAL HISTORY Procedure Laterality Date - BLADDER SURGERY HX 10/27/2018 Cysto, RALSCP, Sling and anterior repair - BLADDER SURGERY HX 10/12/2019 Cystoscopy, anterior repair, and robotic-assisted laparoscopic sacrocolpopexy with mesh. - CATARACT EXTRACTION HX Bilateral 2014 - COLONOSCOPY - EGD - PAST SURGICAL HISTORY OF 10/27/2018 supracervical hyst with shruti salpingectomy - ROTATOR CUFF REPAIR Bilateral 2008 2010 - TONSILLECTOMY AND ADENOIDECTOMY HX 1950 - TUBAL LIGATION Social History Tobacco Use - Smoking status: Never Smoker - Smokeless tobacco: Never Used Vaping Use - Vaping Use: Never used Substance Use Topics - Alcohol use: No - Drug use: No FAMILY HISTORY Problem Relation Age of Onset - Cancer Mother Bladder - Heart disease Father - Hypertension Father - Stroke Father Obstetric History T0 L0 SAB0 TAB0 Ectopic0 Multiple0 Live Births0 OBJECTIVE ALLERGIES Allergen Reactions - Nebivolol Hcl Shortness of Breath Excessive sweating - Codeine Other: See Comments Vomiting, lightheadedness, sweating - Colace [Docusate So* Shortness of Breath - Demerol [Meperidine* Intolerance, Vomiting Vomiting, lightheaded, sweating - Morphine Other: See Comments Vomiting, lightheaded, sweating - Amlodipine Other: See Comments fatique - Ciprofloxacin Rash - Oxybutynin Mental Status Change foggy Current Outpatient Medications Medication Sig - pravastatin (PRAVACHOL) 20 mg tablet Take 20 mg by mouth once daily. After dinner - naproxen sodium (ALEVE ORAL) Take by mouth as needed. - losartan (COZAAR) 25 mg tablet Take 25 mg by mouth once daily. - spironolactone (ALDACTONE) 25 mg tablet Take 12.5 mg by mouth once daily. - omeprazole (PRILOSEC) 20 mg capsule Take 20 mg by mouth as needed. - aspirin, enteric coated (ASPIRIN, ENTERIC COATED) 81 mg EC tablet Take 81 mg by mouth every other day. - estradiol (ESTRACE) 0.01 % (0.1 mg/gram) vaginal cream Use 1 g vaginally once daily. (Patient not taking: Reported on 04/19/2021 ) No current facility-administered medications for this visit. Review of Systems Constitutional: Denies weight loss, weight gain, fever Eyes: Negative vision changes ENT/Mouth: No ulcers, sinusitis, tinnitus Cardiovascular: Denies THOMASON, Edema, palpitations, chest pain Respiratory: Denies wheezing, hemoptysis, SOB, cough Gastrointestinal: Denies diarrhea, bloody stool, constipation Genitourinary: See HPI Musculoskeletal: Denies muscle weakness Skin/breast: Denies discharge, masses, rash, ulcers Neurological: Denies syncope, seizures, numbness Physical Exam BP 158/74 Ht 5' 4 (1.63m) Wt 154 lb (69.9kg) BMI 26.42 kg/(m2). General: No Acute Distress, Well nourished, Well developed, No obvious deformities and Alert/Oriented x 3 Mood/Affect: Normal HEENT: Normocephalic, Atraumatic and Grossly Within Normal Limits GI: Abdomen soft, non-tender, no masses, Liver/spleen non-palpable, No hernias and Normoactive bowel sounds Breast: Symmetrical and No masses, tenderness, nipple discharge AMBULANCE MECHANIC: Vulva - no lesions, skin intact with no discolorations, Vagina - no lesions, no discharge, normal color, Bartholin glands - no enlargement, no tenderness and Cervix - no lesions, not friable, no CMT Skin: Intact, no lesions ASSESSMENT/PLAN: 1. Women's annual routine gynecological examination - ICD9: V72.31, ICD10: Z01.419 (primary diagnosis) - Completed pelvic and breast exam - Encouraged monthly BSE - Follow up for annual exam in one year. - PAP FLUID CERVICAL SCREENING 2. Routine cervical smear - ICD9: V76.2, ICD10: Z12.4 - Completed pelvic and breast exam - Encouraged monthly BSE - Follow up for annual exam in one year. - PAP FLUID CERVICAL SCREENING Steve Aquino, DO [facility] 05-29-2021 Note HNO ID: [id number] Author: Mary Ellen Acosta LPN Service: ? Author Type: LICENSED NURSE Type: Progress Notes Filed: 05/29/2021 1:12 PM Note Text: Math Tutor offered: Patient declines.kezia [facility] 04-19-2021 Note HNO ID: [id number] Author: Arminda Scherer PA-C Service: ? Author Type: Physician Content Strategist Type: Progress Notes Filed: 04/19/2021 12:12 PM Note Text: Mask, face shield, and gloves worn for all in-person care. 04/19/2021 Patient presents with: Shortness of Breath: x 1 week SUBJECTIVE: This is a 85 yo female with HTN and h/o dyspnea on exertion presents to the Exp care with c/o Shortness of Breath x 1 week. The patient complains of off and on non-bloody diarrhea, off and on STAFFORD, and a vague off and on cough x 9-10 days. For the past 7 days she has noted a need to take deep breaths frequently or she feels winded, even at rest. No overt cough. No sinus symptoms. No fever, chills, sweats, body aches, fatigue. Patient denies wheezing, increased WOB, or chest pain. She has had the COVID vaccine. She had a negative rapid COVID test at [facility] 4 days ago. She wants another COVID test today. Discussed that I can do another COVID test for her, but that this is not a full work up for dyspnea in an 85 yo. I cannot do an appropriate work up in Exp Care for SOB. Cannot r/o cardiac, PE, or other. It is almost 12pm on a Wednesday, and so, even to get a CXR she must either go to [facility], [facility], or an ER. She does not want to drive far and she refuses going to an ER. Advised patient she should go to the ER for further work up. Asthma: none Pneumonia: none Tobacco: none Pain on scale of 0-10 with 0 being no pain and 10 being greatest pain: 0 Nothing makes the symptoms better. Nothing makes them worse. Self-treatment:. none The severity is mild and the symptoms are not improving. The patient did not have a similar problem in the last 3 months. The patient did not take any antibiotics in the last 3 months. Symptoms include: Fever (?100.4F): No or Chills: No Cough: Yes Shortness of breath: Yes or Difficulty breathing: No Fatigue: No Muscle aches: No Headache: Yes New loss of smell or taste: No Sore throat: No Nasal congestion: No or Rhinorrhea: No Nausea: No or Vomiting: No Diarrhea: Yes High risk category assessment Age > 60 years old Hypertension Exposures: Sick contacts? No Family or close contacts with confirmed/probable COVID-19 in last 14 days? No OTC meds/remedies that patient has tried: none. Barriers to learning: none. Reviewed meds, OTCs, herbals or supplements. Reviewed allergies, medications, social history, and past medical history. PAST MEDICAL HISTORY Diagnosis Date - Hyperlipidemia - Hypertension - Midline cystocele - Midline cystocele - Sleep apnea CPAP - Uterine prolapse - Vaginal vault prolapse ALLERGIES Nebivolol Hcl, Codeine, Colace [Docusate Sodium], Demerol [Meperidine (Pf)], Morphine, Amlodipine, Ciprofloxacin, and Oxybutynin MEDICATIONS Current Outpatient Medications Medication Sig - pravastatin (PRAVACHOL) 20 mg tablet Take 20 mg by mouth once daily. After dinner - naproxen sodium (ALEVE ORAL) Take by mouth as needed. - losartan (COZAAR) 25 mg tablet Take 25 mg by mouth once daily. - spironolactone (ALDACTONE) 25 mg tablet Take 12.5 mg by mouth once daily. - omeprazole (PRILOSEC) 20 mg capsule Take 20 mg by mouth as needed. - aspirin, enteric coated (ASPIRIN, ENTERIC COATED) 81 mg EC tablet Take 81 mg by mouth every other day. - estradiol (ESTRACE) 0.01 % (0.1 mg/gram) vaginal cream Use 1 g vaginally once daily. (Patient not taking: Reported on 04/19/2021 ) No current facility-administered medications for this visit. Medications and allergies reviewed by this provider. SOCIAL HISTORY Social History Tobacco Use - Smoking status: Never Smoker - Smokeless tobacco: Never Used Vaping Use - Vaping Use: Never used Substance Use Topics - Alcohol use: No - Drug use: No REVIEW OF SYSTEMS Review of Systems ROS: constitutional-neg, HENT-neg, Eyes- neg, heart-neg, respiratory-slight cough, SOB, GI-diarrhea, -neg, skin-neg, Allergy- neg, lymph-neg, neuro-STAFFORD, psych-neg- All systems neg except as noted above in HPI. OBJECTIVE: BP 159/81 Pulse 75 Temp 36.9 ?C (98.5 ?F) (Temporal) Wt 69.9 kg (154 lb) SpO2 97% BMI 26.43 kg/m? . Vital signs reviewed by this provider. Physical Exam ASSESSMENT/PLAN: 1. Dyspnea, unspecified type - ICD9: 786.09, ICD10: R06.00 (primary diagnosis) 2. Diarrhea, unspecified type - ICD9: 787.91, ICD10: R19.7 3. Headache, unspecified headache type - ICD9: 784.0, ICD10: R51.9 - 2019 CORONAVIRUS R/O COVID She has the Moderna COVID vaccine x2 in November 2020 - Advised ER for work up for Dyspnea since I cannot fully work it up here, and patient is also refusing to drive to a [facility] facility for a CXR on a Wednesday. Does not want to drive that far. - Cannot work up fully in Exp Care She is refusing ER. Will try an make it by 12pm today to get a CXR at [facility] since she is refusing ER. (Closes at 12pm on Wednesday (more content not included)... [facility] Evaluation + Plan note No data available for this section [facility] documented in this encounter [facility] Work Phone: Evaluation note* Diagnosis Urinary tract infection, site not specified documented in this encounter [facility] Work Phone: Evaluation note* Diagnosis Primary hypertension- Primary Unspecified essential hypertension documented [facility]* Diagnosis Primary hypertension- Primary Unspecified essential hypertension documented in this encounter [facility]* Diagnosis Primary hypertension- Primary Unspecified essential hypertension [facility]* Diagnosis Essential (primary) hypertension- Primary Unspecified essential hypertension Other forms of dyspnea documented in this encounter [facility] note* Diagnosis Essential (primary) hypertension- Primary Unspecified essential hypertension Primary hypertension Unspecified essential hypertension Dyspnea on exertion Other dyspnea and respiratory abnormality documented in this encounter [facility] note* Diagnosis Essential (primary) hypertension- Primary Unspecified essential hypertension documented in this encounter [facility] note* Diagnosis Encounter for screening mammogram for malignant neoplasm of breast documented in this encounter [facility] note* Diagnosis Mastodynia documented in this encounter [facility] note* Diagnosis Encounter for screening mammogram for malignant neoplasm of breast- Primary documented in this encounter [facility] note* Diagnosis Primary hypertension Unspecified essential hypertension documented in this encounter [facility] Discharge instructions No data available for this section [facility] Progress note No data available for this section [facility] Summary Purpose Family History No Family History Records FoundNo Family History Records FoundNo Family History Records FoundNo Family History Records FoundNo Family History Records FoundNo Family History Records FoundNo Family History Records FoundNo Family History Records Found Advance Directives No Advanced Directives Records FoundDocuments on File Type Date Recorded Patient [employer] Expl anation Advance Directives and Living Will Power of Electrical Sign Servicer Documents on File Type Date Recorded Patient [employer] Expl anation Advance Directives and Living Will Power of Electrical Sign Servicer Documents on File Type Date Recorded Patient [employer] Expl anation ACP-Advance Directive ACP-Power of Electrical Sign Servicer Assessments Diagnosis Dyspnea on exertion Other dyspnea and respiratory abnormality Diagnosis Dyspnea on exertion Other dyspnea and respiratory abnormality Diagnosis Essential hypertension Unspecified essential hypertension Dyspnea on exertion Other dyspnea and respiratory abnormality Reason for Referral Status Reason Specialty Diagnoses / Procedures Referred By Contact Referred To Contact Closed Cardiology Diagnoses Dyspnea on exertion Procedures Echo Stress Test Luz Maria Pemberton PA-C [address] [place] [address] Additional Source Comments INFORMATION SOURCE (unrecogn ized section and content) DATE CREATED AUTHOR AUTHOR'S ORGANIZ ATION 11/28/2018 [facility] DATE CREATED AUTHOR AUTHOR'S ORGANIZ ATION 03/24/2020 [facility] DATE CREATED AUTHOR AUTHOR'S ORGANIZ ATION 09/25/2021 [facility] DATE CREATED AUTHOR AUTHOR'S ORGANIZ ATION 03/17/2022 [facility] DATE CREATED AUTHOR AUTHOR'S ORGANIZ ATION 05/08/2022 [facility] DATE CREATED AUTHOR AUTHOR'S ORGANIZ ATION 08/21/2022 [place] [facility] ([place]) DATE CREATED AUTHOR AUTHOR'S ORGANIZ ATION 08/11/2023 [facility] Care Teams (unrecognized sec tion and content) Handle Rounder Operator Relationship Specialty Start Date End Date Rufus Evans MD [address] [place] [id number] PCP - General Family Medicine 07/28/18 Handle Rounder Operator Relationship Specialty Start Date End Date Rufus Evans MD [address] [place] [address] [id number] PCP - General 07/28/18 Handle Rounder Operator Relationship Specialty Start Date End Date Rufus Evans MD [address] [place] [address] [id number] PCP - General 07/28/18 Handle Rounder Operator Relationship Specialty Start Date End Date Rufus Evans MD [address] [place] [address] [id number] PCP - General 07/28/18 Handle Rounder Operator Relationship Specialty Start Date End Date Rufus Evans MD [address] [place] [address] [id number] PCP - General 07/28/18 Handle Rounder Operator Relationship Specialty Start Date End Date Rufus Evans MD [address] [place] [address] [id number] PCP - General 07/28/18 Handle Rounder Operator Relationship Specialty Start Date End Date Rufus Evans MD [address] [place] [address] [id number] PCP - General 07/28/18 Handle Rounder Operator Relationship Specialty Start Date End Date Rufus Evans MD [address] [place], [place] [id number] PCP - General 07/28/18 Handle Rounder Operator Relationship Specialty Start Date End Date Ajit Reaves [address] [place] [address] PCP - General Internal Medicine 05/12/23 Handle Rounder Operator Relationship Specialty Start Date End Date Rufus Evans MD [address] [place], [place] [id number] PCP - General 07/28/18 05/11/23 Ajit Reaves [address] [place] [address] PCP - General Internal Medicine 05/12/23 Handle Rounder Operator Relationship Specialty Start Date End Date Ajit Reaves [address] [place] [id number] PCP - General Internal Medicine 05/12/23 Care Team (unrecognized sect ion and content) Care Team Personnel Name: AJIT REAVES MD Member Role: Primary Care Physician Address: Address: [address] [place] [address] [address] [place] [address]- Care Team Related Persons Name: QUENTINANKIT HORTA Address: Home [address] [place] [address] Reason for Visit (unrecogniz ed section and content) Reason Comments Follow-up Reason Comments Med Refill Reason Comments 6 Month Follow-up Hypertension FOR RECORDS PERTAINING TO PATIENTS WHO ARE OR HAVE BEEN ENROLLED IN A CHEMICAL DEPENDENCY/SUBSTANCEABUSE PROGRAM, SOME INFORMATION MAY BE OMITTED. This clinical summary was aggregated from multiple sources. Caution should be exercised in using it in the provision of clinical care. This summary normalizes information from multiple sources, and as a consequence, information in this document may materially change the coding, format and clinical context of patient data. In addition, data may be omitted in some cases. CLINICAL DECISIONS SHOULD BE BASED ON THE PRIMARY CLINICAL RECORDS. [employer] [facility]. provides no warranty or guarantee of the accuracy or completeness of information in this document.
[2023-08-31 18:58] LABS: Absolute Lymphocyte Count 1.97 X10^3/uL (0.83-4.51); Absolute Neutrophil Count 4.4 X10^3/uL (2.0-7.7); Basophil# 0.02 X10^3/uL; Basophil% 0.3 % (0-1); Eosinophil# 0.33 X10^3/uL; Eosinophils% 4.5 % (0-5); Hematocrit 34.4 % (37-47); Hemoglobin 11.7 g/dL (12.0-15.0); Lymphocyte # 1.97 X10^3/ul (0.83-4.51); Lymphocyte % 26.7 % (19-41); Mean Corpuscular Hgb 33.4 pg (27.0-32.0); Mean Corpuscular Volume 98.3 fL (81-99); Mean Platelet Vol. 8.8 fl (6.2-12.0); Monocyte# 0.65 X10^3/uL; Monocyte% 8.8 % (0-10); NRBC Flagged by Analyzer 0 % (0-5); Neutrophil # 4.38 X10^3/uL (2.7-7.7); Neutrophil % 59.3 % (47-70); Platelet Count 282 K/mm3 (150-450); RBC Distribution Width CV 12.4 % (11.6-14.6); RBC Distribution Width SD 44.8 fl (35.1-43.9); White Blood Count 7.4 K/mm3 (4.4-11.0)
[2023-08-31 19:13] LABS: Bacteria 0 SEEN /hpf (None Seen); Mucous, Urine 0 SEEN /hpf (<or=2+); Red Blood Cells-Urine 0 SEEN /hpf (0-5); White Blood Cells 0 SEEN /hpf (0-5)
[2023-08-31 19:14] LABS: Color, Urine Yellow (Yellow); Glucose, Dipstick Normal (Normal); Ketone-Dipstick Negative (Negative); Leukocyte Esterase-Dipstick Negative /ul (Negative); Nitrite-Dipstick Negative (Negative); Occult Blood-Urine Negative /ul (Negative); Protein-Dipstick Negative (Negative); Urine Bilirubin Dipstick Negative (Negative); Urine Clarity Clear (Clear); Urine Urobilinogen Normal (Normal)
[2023-08-31 19:14] LABS: Anion Gap 2 (5-15); BUN 13 mg/dL (7-18); BUN/Creat Ratio 13.1 RATIO (10-20); Calcium,Total 9.1 mg/dL (8.5-10.1); Chloride 108 mmol/L (98-107); Creatinine, Serum 0.99 mg/dL (0.55-1.02); EST Glomerular Filtration Rate 56 mL/min (>60); Est Glom Filt Rate - Afr Amer 68 mL/min (>60); Estimated Creatinine Clearance 35.22 ml/min; Glucose 117 mg/dL (74-106); Sodium Level 140 mmol/L (136-145)
[2023-08-31 19:22] LABS: Squamous Epithelial Cells - UA 0-5 SEEN /hpf (5-10)
[2023-08-31] MEDS: Potassium Chloride Oral Tablet 20 MEQ 40 MEQ PO (19:24)
[2023-08-31 20:38] VITALS: PULSE 77; O2SAT 99
== END 2023-08-31 20:38 | disposition home or self-care (01) ==
PROVIDERS: Physician Assistant; Emergency Provider Emergency Medicine; Visit Provider Emergency Medicine
DX: B34.9 Viral infection, unspecified (principal); E87.6 Hypokalemia; E86.0 Dehydration
CPT/HCPCS: 80048; 81001; 85025; 96360; 99283; J7030; A4216

== ENCOUNTER → 2024-05-15 | Outpatient (CLI) | payer MEDICARE, OTHER, SELFPAY ==
[2024-05-15 11:07] LABS: Absolute Lymphocyte Count 2.14 X10^3/uL (0.83-4.51); Absolute Neutrophil Count 3.7 X10^3/uL (2.0-7.7); Basophil# 0.04 X10^3/uL; Basophil% 0.6 % (0-1); Eosinophil# 0.17 X10^3/uL; Eosinophils% 2.6 % (0-5); Hemoglobin 12.1 g/dL (12.0-15.0); Lymphocyte # 2.14 X10^3/ul (0.83-4.51); Lymphocyte % 32.2 % (19-41); Mean Corp Hgb Conc 32.7 g/dL (32-36); Mean Corpuscular Volume 97.9 fL (81-99); Mean Platelet Vol. 9.1 fl (6.2-12.0); Monocyte# 0.63 X10^3/uL; Monocyte% 9.5 % (0-10); NRBC Flagged by Analyzer 0 % (0-5); Neutrophil # 3.65 X10^3/uL (2.7-7.7); Neutrophil % 54.9 % (47-70); Platelet Count 276 K/mm3 (150-450); RBC Distribution Width CV 12.4 % (11.6-14.6); RBC Distribution Width SD 44.6 fl (35.1-43.9); Red Blood Count 3.78 M/mm3 (4.2-5.4); White Blood Count 6.6 K/mm3 (4.4-11.0)
[2024-05-15 11:10] LABS: Erythrocyte Sedimentation Rate 6 mm/hr (0-30)
[2024-05-15 11:14] LABS: AST(SGOT) 14 U/L (15-37); Alanine Aminotransfer ALT/SGPT 13 U/L (13-56); Albumin, Serum 3.5 g/dL (3.2-5.0); Alkaline Phosphatase 69 U/L (45-117); Amylase 41 U/L (25-115); Anion Gap 6 (5-15); BUN 11 mg/dL (7-18); Bilirubin, Direct 0.16 mg/dL (0.00-0.30); Calcium,Total 9.4 mg/dL (8.5-10.1); Chloride 105 mmol/L (98-107); Creatinine, Serum 0.84 mg/dL (0.55-1.02); EST Glomerular Filtration Rate 68 mL/min (>60); Est Glom Filt Rate - Afr Amer 82 mL/min (>60); Globulin 3.4 g/dL (2.2-4.2); Glucose 84 mg/dL (74-106); Lipase 24 U/L (13-75); Potassium 3.9 mmol/L (3.5-5.1); Protein, Total 6.9 g/dL (6.4-8.2); Sodium Level 140 mmol/L (136-145)
[2024-05-15 11:16] LABS: CRP < 2.90 mg/L (0.0-3.0)
== END | disposition home or self-care (01) ==
LOC: LABSPEC 10:23
PROVIDERS: PCP Nurse Practitioner Family; Referring Provider Nurse Practitioner Family; Visit Provider Nurse Practitioner Family
DX: R10.11 Right upper quadrant pain (principal)
CPT/HCPCS: 80048; 80076; 82150; 83690; 85025; 85652; 86140

== ENCOUNTER → 2024-11-03 | Outpatient (CLI) | payer OTHER, MEDICARE, SELFPAY ==
--- NOTE | 2024-11-03 15:06 | RAD_ITS ---
PROCEDURE: CHEST PA AND LATERAL REASON FOR EXAM: Cough. TECHNIQUE: Frontal and lateral views of the chest. COMPARISON: None. FINDINGS: Hyperinflation. Mild increased linear markings at the lung bases slightly more prominent at the left lung base suggestive of scarring. Calcification of the aortic arch. Degenerative changes of the visualized dorsal vertebrae. RAD/Chest PA and Lateral IMPRESSION: Hyperinflation. Findings suggestive of mild basilar scarring slightly more prominent at the lef t lung base. Reading Location: [id number]
== END | disposition home or self-care (01) ==
PROVIDERS: PCP Nurse Practitioner Family; Referring Provider Nurse Practitioner Family; Visit Provider Nurse Practitioner Family
DX: R05.9 Cough, unspecified (principal)
CPT/HCPCS: 71046